=== PATIENT | female | born 1950 | race Hispanic/Latino ===

== ENCOUNTER 2021-07-13 19:58 | Inpatient (IN) | payer MEDICARE, MEDICAID ==
[2021-07-13 20:50] LABS: #Lymphocytes 1.5 thou/uL (1.20-3.40); #Monocytes 0.9 thou/uL (0.11-0.59); #Neutrophils 7.2 thou/uL (1.40-6.50); %Basophils 0.1 % (0.0-1.0); %Eosinophils 0.3 % (0.0-10.0); %Lymphocytes 15.5 % (21.0-51.0); %Neutrophils 75.1 % (42.0-75.0); Hemoglobin 12.6 g/dL (12.0-16.0); Mean Corpuscular HGB CONC 35.4 g/dL (32.0-36.0); Mean Corpuscular Hemoglobin 31.2 pg (27.0-31.0); Mean Corpuscular Volume 88.2 fL (78.0-98.0); Mean Platelet Volume 8.1 fL (7.4-10.4); Platelet Count 200 thou/uL (130-400); RBC Distribution Width 12.5 % (11.5-14.5); Red Blood Cell (RBC) Count 4.05 mill/uL (4.20-5.40); White Blood Cell (WBC) Count 9.6 thou/uL (4.8-10.8)
[2021-07-13 21:06] LABS: ALT (SGPT) 10 U/L (8-55); AST (SGOT) 15 U/L (5-34); Albumin 3.8 g/dL (3.4-4.8); Alkaline Phosphatase 79 U/L (40-110); Anion Gap 15 mmol/L (10-20); BUN (Urea Nitrogen) 17 mg/dL (9.8-20.1); Bilirubin, Total 0.8 mg/dL (0.2-1.2); Calc. Creatinine Clearance 0 mL/min (70-130); Calcium 8.7 mg/dL (7.8-10.44); Carbon Dioxide 23 mmol/L (23-31); Chloride 99 mmol/L (98-107); Globulin 3.2 g/dL (2.4-3.5); Glucose 123 mg/dL (83-110); Potassium 3.8 mmol/L (3.5-5.1); Sodium 133 mmol/L (136-145)
[2021-07-13 21:52] LABS: Bacteria/HPF None Seen HPF (None Seen); Bilirubin Negative (Negative); Blood, Urine Negative (Negative); Clarity Clear (Clear); Glucose, Urine (Dipstick) Normal (Negative); Ketone, Urine Trace mg/dL (Negative); Leukocyte Negative Leu/uL (Negative); Nitrite Negative (Negative); Protein, Urine (Dipstick) 30 mg/dL (Neg-Trace); RBC/HPF 0-3 HPF (0-3); Specific Gravity, Urine 1.022 (1.002-1.036); Squamous Epithelial 0-3 HPF (0-3); Urobilinogen Normal mg/dL (Less than 2); WBC/HPF 0-3 HPF (0-3)
[2021-07-13 22:42] LABS: SARS-CoV-2 NAA Rapid Test Not Detected (NotDetected)
[2021-07-13] MEDS ORDERED: Bisacodyl 5 MG TAB PO PRN (23:28)
[2021-07-13] MEDS ORDERED: Senokot S 8.6-50 MG TAB PO PRN (23:28)
[2021-07-13] MEDS ORDERED: Ondansetron PF 4 MG/2 ML Vial IVP PRN (23:28)
[2021-07-14] MEDS ORDERED: Oseltamivir 75 MG CAP PO SCH ×4 (00:30→09:00)
[2021-07-14 00:50] VITALS: BMI 34.0
[2021-07-14] MEDS: Sodium Chloride 0.9% 1,000 ML IV SCH ×2 (01:42→14:12)
[2021-07-14 05:58] LABS: #Neutrophils 5.4 thou/uL (1.40-6.50); %Basophils 0.2 % (0.0-1.0); %Eosinophils 0.5 % (0.0-10.0); %Lymphocytes 23.5 % (21.0-51.0); %Monocytes 11.6 % (0.0-10.0); %Neutrophils 64.2 % (42.0-75.0); Hemoglobin 10.8 g/dL (12.0-16.0); Mean Corpuscular HGB CONC 33.4 g/dL (32.0-36.0); Mean Corpuscular Hemoglobin 30.1 pg (27.0-31.0); Mean Corpuscular Volume 90.1 fL (78.0-98.0); Mean Platelet Volume 8.3 fL (7.4-10.4); Platelet Count 169 thou/uL (130-400); RBC Distribution Width 12.5 % (11.5-14.5); Red Blood Cell (RBC) Count 3.58 mill/uL (4.20-5.40); White Blood Cell (WBC) Count 8.3 thou/uL (4.8-10.8)
[2021-07-14 06:16] LABS: ALT (SGPT) 10 U/L (8-55); AST (SGOT) 14 U/L (5-34); Albumin 3.2 g/dL (3.4-4.8); Alkaline Phosphatase 63 U/L (40-110); Anion Gap 11 mmol/L (10-20); BUN (Urea Nitrogen) 16 mg/dL (9.8-20.1); Bilirubin, Total 0.6 mg/dL (0.2-1.2); Calc. Creatinine Clearance 74 mL/min (70-130); Calcium 8.4 mg/dL (7.8-10.44); Carbon Dioxide 25 mmol/L (23-31); Cardiac Risk 2.6 (Less than 4.5); Chloride 103 mmol/L (98-107); Cholesterol 90 mg/dl (< 200 Desired); Glucose 91 mg/dL (83-110); HDL Cholesterol 35 mg/dL (>60 Neg Risk); LDL Cholesterol, Calculated 41 mg/dL; Potassium 3.6 mmol/L (3.5-5.1); Protein, Total 6.2 g/dL (5.8-8.1); Sodium 135 mmol/L (136-145); Triglycerides 71 mg/dL (Less than 150)
[2021-07-14 06:21] LABS: Hemoglobin A1c 5.7 % (4.0-6.0)
[2021-07-14] MEDS: Oseltamivir 6 MG/ML ORAL SUSP PO SCH ×2 (08:18→21:09)
[2021-07-14] MEDS ORDERED: Famotidine/PF 20 mg/2ml Vial SLOW IVP SCH (09:00)
[2021-07-14] MEDS ORDERED: Pancrelipase DR 12,000 1 CAP PO PRN (13:42)
[2021-07-14] MEDS: Acetaminophen 325 MG TAB PO PRN (21:13)
[2021-07-14] MEDS ORDERED: guaiFENesin 200 MG TAB PO PRN (21:14)
[2021-07-15] MEDS: Benzonatate 100 MG CAP PO PRN ×2 (00:23→10:55)
[2021-07-15] MEDS: Sodium Chloride 0.9% 1,000 ML IV SCH ×2 (03:21→15:49)
[2021-07-15] MEDS: Fish Oil 1,000 MG CAP PO SCH (08:00)
[2021-07-15] MEDS: Lisinopril 20 MG TAB PO SCH (08:00)
[2021-07-15] MEDS: Alogliptin 6.25 MG TAB PO SCH (08:00)
[2021-07-15] MEDS: Atorvastatin Calcium 40 MG TAB PO SCH (08:00)
[2021-07-15] MEDS: Oseltamivir 6 MG/ML ORAL SUSP PO SCH (08:01)
[2021-07-15] MEDS: Clopidogrel Bisulfate 75 MG TAB PO SCH (08:01)
[2021-07-15] MEDS ORDERED: Alogliptin 25 MG TAB PO SCH (09:00)
[2021-07-15] MEDS: Cholestyramine/Aspartame 4 gm Packet PO SCH (10:54)
[2021-07-15] MEDS: Acetaminophen 325 MG TAB PO PRN (10:55)
[2021-07-15] MEDS ORDERED: Enoxaparin Sodium 40 MG/0.4 ML SYRINGE SC SCH (11:00)
[2021-07-15] MEDS: Oseltamivir 75 MG CAP PO SCH (21:26)
[2021-07-16] MEDS: Sodium Chloride 0.9% 1,000 ML IV SCH ×2 (05:08→20:17)
[2021-07-16] MEDS: Oseltamivir 75 MG CAP PO SCH ×2 (08:04→20:16)
[2021-07-16] MEDS: Enoxaparin Sodium 40 MG/0.4 ML SYRINGE SC SCH (08:04)
[2021-07-16] MEDS: Clopidogrel Bisulfate 75 MG TAB PO SCH (08:04)
[2021-07-16] MEDS: Fish Oil 1,000 MG CAP PO SCH (08:04)
[2021-07-16] MEDS: Atorvastatin Calcium 40 MG TAB PO SCH (08:04)
[2021-07-16] MEDS: Alogliptin 6.25 MG TAB PO SCH (08:05)
[2021-07-16] MEDS: Lisinopril 20 MG TAB PO SCH (08:05)
[2021-07-16] MEDS: Cholestyramine/Aspartame 4 gm Packet PO SCH (14:37)
[2021-07-16] MEDS: Acetaminophen 325 MG TAB PO PRN (20:16)
[2021-07-16] MEDS: Benzonatate 100 MG CAP PO PRN (20:54)
[2021-07-17] MEDS ORDERED: FLU VACC QS2021-22(65YR UP)/PF 240 MCG/0.7 ML SYRINGE IM ONE (09:00)
[2021-07-17] MEDS: Enoxaparin Sodium 40 MG/0.4 ML SYRINGE SC SCH (09:51)
[2021-07-17] MEDS: Atorvastatin Calcium 40 MG TAB PO SCH (09:51)
[2021-07-17] MEDS: Alogliptin 6.25 MG TAB PO SCH (09:51)
[2021-07-17] MEDS: Clopidogrel Bisulfate 75 MG TAB PO SCH (09:52)
[2021-07-17] MEDS: Lisinopril 20 MG TAB PO SCH (09:52)
[2021-07-17] MEDS: Oseltamivir 75 MG CAP PO SCH ×2 (09:53→21:46)
[2021-07-17] MEDS: Fish Oil 1,000 MG CAP PO SCH (09:53)
[2021-07-17] MEDS: Sodium Chloride 0.9% 1,000 ML IV SCH (09:55)
[2021-07-17] MEDS: Cholestyramine/Aspartame 4 gm Packet PO SCH (13:39)
[2021-07-17] MEDS: Acetaminophen 325 MG TAB PO PRN ×2 (13:39→21:46)
[2021-07-18] MEDS ORDERED: Chloraseptic Spray 180 ml Bottle PO PRN (00:24)
[2021-07-18] MEDS: Sodium Chloride 0.9% 1,000 ML IV SCH ×2 (01:09→12:12)
[2021-07-18] MEDS: Ampicillin/Sulbactam 3 GM in Sodium Chloride 0.9% 100 ML IVPB SCH ×4 (01:09→17:52)
[2021-07-18] MEDS: Atorvastatin Calcium 40 MG TAB PO SCH (10:27)
[2021-07-18] MEDS: Fish Oil 1,000 MG CAP PO SCH (10:27)
[2021-07-18] MEDS: Alogliptin 6.25 MG TAB PO SCH (10:27)
[2021-07-18] MEDS: Clopidogrel Bisulfate 75 MG TAB PO SCH (10:27)
[2021-07-18] MEDS: Lisinopril 20 MG TAB PO SCH (10:27)
[2021-07-18] MEDS: Cholestyramine/Aspartame 4 gm Packet PO SCH (10:27)
[2021-07-18] MEDS: Enoxaparin Sodium 40 MG/0.4 ML SYRINGE SC SCH (10:28)
[2021-07-18] MEDS: Oseltamivir 75 MG CAP PO SCH (10:28)
[2021-07-18 12:44] VITALS: TEMP 98.3
[2021-07-18 16:36] VITALS: BP 121/78
== END 2021-07-18 18:51 | DRG 64 ==
LOC: ERS 19:58 → NEURO 22:46 → OBSVTOIN 07-14 16:07
PROVIDERS: ADMIT Student in an Organized Health Care Education/Training Program; ATTEND Internal Medicine
DX: I63.9 Cerebral infarction, unspecified (principal); G93.41 Metabolic encephalopathy; I69.354 Hemiplegia and hemiparesis following cerebral infarction affecting left non-dominant side; G81.91 Hemiplegia, unspecified affecting right dominant side; Z20.822 Contact with and (suspected) exposure to COVID-19; E78.5 Hyperlipidemia, unspecified; E86.0 Dehydration; I10 Essential (primary) hypertension; J10.1 Influenza due to other identified influenza virus with other respiratory manifestations; E11.9 Type 2 diabetes mellitus without complications; Z90.49 Acquired absence of other specified parts of digestive tract
CPT/HCPCS: 0240U; 36415; 36416; 51701; 70450; 70551; 71045; 74230; 80053; 80061; 81003; 81015; 83036; 83605; 84484; 85025; 87086; 87430; 93005; 93306; 93880; 95712; 95819; 95957; 96374; G0378; J0295; J1650; J3490; J7050; S0028